=== PATIENT | male | born 1980 ===

== ENCOUNTER 2017-09-15 22:14 | Emergency (ER) | payer SELFPAY ==
[2017-09-15 22:45] VITALS: RESP 20; TEMP 97.2; O2SAT 94
--- NOTE | 2017-09-16 00:40 | C.PDOC ---
History Of Present Illness 36 year old male who presents to the ER with a complaint of lower back pain radiating to the bilateral buttock and posterior thighs since approximately 17: 00 that worsens with movement and when standing up. Patient has not taken anything for the pain; denies Hx of similar symptoms, weakness, numbness, dysuria, hematuria, or incontinence. Time Seen by Provider: 09/15/17 22:49 Chief Complaint (Nursing): Back Pain History Per: Patient History/Exam Limitations: no limitations Onset/Duration Of Symptoms: Hrs Current Symptoms Are (Timing): Still Present Quality Of Discomfort: Unable To Describe Previous Symptoms: None Associated Symptoms: None Exacerbating Factor(s): Movement, Standing Recent travel outside of the [place]: No Past Medical History Reviewed: Historical Data, Nursing Documentation, Vital Signs Vital Signs: Last Vital Signs Temp 97.2 F L 09/15/17 22:37 Pulse 74 09/16/17 00:48 Resp 20 09/16/17 00:48 BP 110/72 09/16/17 00:48 Pulse Ox 94 L 09/16/17 03:14 - Medical History PMH: No Chronic Diseases Surgical History: No Surg Hx Family History: States: Unknown Family Hx - Social History Hx Alcohol Use: No Hx Substance Use: No - Immunization History Hx Tetanus Toxoid Vaccination: No Hx Influenza Vaccination: No Hx Pneumococcal Vaccination: No Review Of Systems Genitourinary: Negative for: Dysuria, Incontinence, Hematuria Musculoskeletal: Positive for: Back Pain, Leg Pain Neurological: Negative for: Weakness, Numbness Physical Exam - Physical Exam Appears: Non-toxic, No Acute Distress Skin: Normal Color, Warm, Dry Head: Atraumatic, Normacephalic Eye(s): bilateral: Normal Inspection Oral Mucosa: Moist Gastrointestinal/Abdominal: Normal Exam, No Tenderness Back: No Vertebral Tenderness, Paraspinal Tenderness (Lumbar), Straight Leg Raising (Positive at 30 degrees) Extremity: Normal ROM (x4), No Tenderness Pulses: Left Dorsalis Pedis: Normal, Right Dorsalis Pedis: Normal Neurological/Psych: Oriented x3, Normal Speech, Normal Cognition Gait: Steady ED Course And Treatment O2 Sat by Pulse Oximetry: 94 (Room air) Pulse Ox Interpretation: Normal Progress Note: Valium, toradol, and morphine administered. On reevaluation, patient's pain has improved, patient is able to ambulate in the ER without any difficulty. Will discharge home with instructions to follow up with clinic for further evaluation. Disposition Counseled Patient/Family Regarding: Diagnosis, Need For Followup, Rx Given - Disposition Referrals: [facility] at [facility] [place] [Outside] Disposition: HOME/ ROUTINE Disposition Time: 00:38 Condition: STABLE Additional Instructions: Please take all meds as prescribed Follow up in clinic Return to ER if worse Prescriptions: Cyclobenzaprine [Cyclobenzaprine HCl] 10 mg PO HS #10 tab Ibuprofen [Motrin Tab] 800 mg PO QID #30 tab Instructions: Muscle Strain (ED) Forms: [facility] (German) Print Language: MALIAN - Clinical Impression Clinical Impression: Low back strain - Scribe Statement The provider has reviewed the documentation as recorded by the Scribpravin Hylton All medical record entries made by the Fartunibpravin were at my direction and personally dictated by me. I have reviewed the chart and agree that the record accurately reflects my personal performance of the history, physical exam, medical decision making, and the department course for this patient. I have also personally directed, reviewed, and agree with the discharge instructions and disposition.
[2017-09-16 00:49] VITALS: BP 110/72; PULSE 74
== END 2017-09-16 00:48 | disposition home or self-care (01) ==
LOC: C.ER 22:14
DX: S39.012A Strain of muscle, fascia and tendon of lower back, initial encounter (principal); X58.XXXA Exposure to other specified factors, initial encounter
CPT/HCPCS: 96372; 99284; J1885; J2270